=== PATIENT | male | born 1960 | race Caucasian/White ===

== ENCOUNTER → 2021-11-12 08:01 | Outpatient (CLI) | payer BC, SELFPAY ==
--- NOTE | ~2021-11-12 | MR_ITS ---
EXAMINATION: MR knee LT wo con DATE: 11/12/2021 08:50 INDICATION: Medial left knee pain. TECHNIQUE: Magnetic resonance imaging (MRI) of the left knee was performed without intravenous contra st. Sequences included sagittal and coronal PD-weighted FSE and axial, coronal, and sagittal STIR FSE . COMPARISON: Left knee radiographs 10/26/2021 FINDINGS: Medial compartment: Medial meniscus is normal. There is cartilage surface irregularity of tibial condyle. There is at nnamdi st deep partial thickness cartilage loss of femoral condyle involving the posterior articular surface in an area measuring 9 x 3 mm. Lateral compartment: Lateral meniscus is normal. There is cartilage surface irregularity of tibial condyle and femoral con dyle. Patellofemoral compartment: There is shallow partial-thickness cartilage loss of patellar median ridge and medial facet. There is cartilage surface irregularity of trochlea. Ligaments and tendons: There are changes of anterior cruciate ligament reconstruction. In the tibial tunnel, there are cysti c spaces and a partial tear of the graft. Medial collateral ligament and lateral collateral ligament complex are intact. There is mild patellar tendinopathy. Fluid: There is a small knee joint effusion. IMPRESSION: 1. Moderate chondrosis of medial compartment and mild chondrosis of lateral and patellofemoral compar tments. 2. Anterior cruciate ligament reconstruction with partial tear distally. 3. Small knee joint effusion. Reviewed, dictated and finalized at location A. IMPRESSION: 1. Moderate chondrosis of medial compartment and mild chondrosis of lateral and patellofemoral compartments. 2. Anterior cruciate ligament reconstruction with partial tear distally. 3. Small knee joint effusion.
== END ==
PROVIDERS: Visit Provider Orthopaedic Surgery
DX: M25.462 Effusion, left knee (principal)
CPT/HCPCS: 73721

== ENCOUNTER → 2022-02-09 12:22 | Outpatient (CLI) | payer BC, SELFPAY ==
--- NOTE | ~2022-02-09 | XR_ITS ---
EXAMINATION: XR thoracic spine 3V DATE: 02/09/2022 13:08 INDICATION: Right-sided C4 radiculopathy TECHNIQUE: AP, lateral and lateral swimmer's views of the thoracic spine were obtained. COMPARISON: None. FINDINGS: There is no fracture. Bone alignment is normal. The vertebral body heights are maintained. There is mild loss of intervertebral disc space height at multiple levels in the thoracic spine. Smal l degenerative osteophytes project from the anterior endplates of multiple vertebral bodies. Calcifie d pulmonary nodules are consistent with old granulomatous disease. Moderate to severe cervical spondy losis is noted. IMPRESSION: 1. Mild to moderate thoracic spondylosis without acute findings. Reviewed, dictated and finalized at location F.
== END ==
DX: M54.14 Radiculopathy, thoracic region (principal); M43.14 Spondylolisthesis, thoracic region
CPT/HCPCS: 72072